=== PATIENT | female | born 1995 | race Two or more races ===

== ENCOUNTER 2019-02-03 09:27 | Emergency (ER) | payer OTHER ==
[2019-02-03 09:34] VITALS: BMI 17.2
--- NOTE | 2019-02-03 09:54 | PDOC ---
History of Present Illness - General Chief Complaint: Pain, Acute Stated Complaint: FEVER/ABD PAIN Time Seen by Provider: 02/03/19 09:52 History Source: Patient Exam Limitations: No Limitations - History of Present Illness Initial Comments: 02/03/19 10:35 Patient is a 23F with history of VSD s/p repair 3 years ago here today complaining of fever, nausea, and abdominal pain. The patient reports a subjective fever that started 4 days ago, with no temperature taken at home. Denies cough, chest pain, shortness of breath, headache, neck pain and sore throat. Patient states that she has had issues with abdominal pain and nausea for the past year. Patient had a CT scan 1 month ago at [facility] that was negative. Patient states the abdominal pain became worse about three days ago after taking doxycycline for her acne. Pain is worse when she doesn't eat. Reports issues with constipation, but had normal bowel movement this morning. Denies vaginal pain, vaginal discharge. Past History - Past Medical History Allergies/Adverse Reactions: Allergies Allergy/AdvReac Type Severity Reaction Status Date / Time No Known Allergies Allergy Verified 02/03/19 09:30 Home Medications: Ambulatory Orders NK [No Known Home Medication] 02/03/19 Cardiac Disorders: Yes (HEART MURMUR) COPD: No - Surgical History Cardiac Surgery: Yes - Immunization History Immunization Up to Date: Yes - Suicide/Smoking/Psychosocial Hx Smoking History: Never smoked Hx Alcohol Use: No Drug/Substance Use Hx: No Review of Systems - Review of Systems Able to Perform ROS?: Yes Comments:: 02/03/19 10:38 GENERAL/CONSTITUTIONAL: +fever +chills. No weakness. HEAD, EYES, EARS, NOSE AND THROAT: No change in vision. No ear pain or discharge. No sore throat. CARDIOVASCULAR: No chest pain or shortness of breath RESPIRATORY: No cough, wheezing, or hemoptysis. GASTROINTESTINAL: +nausea, no vomiting, diarrhea +constipation. GENITOURINARY: No dysuria, frequency, or change in urination. MUSCULOSKELETAL: No joint or muscle swelling or pain. No neck or back pain. SKIN: No rash NEUROLOGIC: No headache, vertigo, loss of consciousness, or change in strength/ sensation. ENDOCRINE: No increased thirst. No abnormal weight change HEMATOLOGIC/LYMPHATIC: No anemia, easy bleeding, or history of blood clots. ALLERGIC/IMMUNOLOGIC: No hives or skin allergy. *Physical Exam - Vital Signs Last Vital Signs Temp Pulse Resp BP Pulse Ox 98.7 F 75 18 108/57 L 100 02/03/19 09:32 02/03/19 09:32 02/03/19 09:32 02/03/19 09:32 02/03/19 09:32 - Physical Exam Comments: 02/03/19 10:39 GENERAL: Awake, alert, and fully oriented, in no acute distress HEAD: No signs of trauma, normocephalic, atraumatic EYES: PERRLA, EOMI, sclera anicteric, conjunctiva clear ENT: Auricles normal inspection, hearing grossly normal, nares patent, oropharynx clear without exudates. Moist mucosa NECK: Normal ROM, supple, no lymphadenopathy, JVD, or masses LUNGS: No distress, speaks full sentences, clear to auscultation bilaterally HEART: Regular rate and rhythm, normal S1 and S2, no murmurs, rubs or gallops, peripheral pulses normal and equal bilaterally. ABDOMEN: Soft, nontender, normoactive bowel sounds. No guarding, no rebound. No masses EXTREMITIES: Normal inspection, Normal range of motion, no edema. No clubbing or cyanosis. NEUROLOGICAL: Cranial nerves II through XII grossly intact. Normal speech, normal gait, no focal sensorimotor deficits SKIN: Warm, Dry, normal turgor, no rashes or lesions noted. Medical Decision Making - Medical Decision Making 02/03/19 10:39 Patient is 23F with history of VSD s/p repair here today with subjective fever and abdominal pain. Vitals normal and stable. No pain on exam. Considered typical causes of abdominal pain and fever, including, but not limited to: appendicitis, diverticulitis, colitis, pancreatitis, PID, etc but patient is nontender on exam and appears well. No signs of other infectious source like pneunomia or pharyngitis. LMP 2 weeks ago. Will evaluate with upreg. Will treat with zofran, tylenol and maalox. Suspect inflammation of stomach as primary cause, either due to medications or possible ulcer. Will refer to PCP (Dr Hanna ) and GI. 02/03/19 11:00 Preg negative. 02/03/19 11:13 Patient reports feeling better. Will discharge with follow up. Return precautions and discharge instructions given. *DC/Admit/Observation/Transfer Diagnosis at time of Disposition: Gastritis - Discharge Dispostion Disposition: HOME Condition at time of disposition: Good Decision to Admit order: No - Referrals Referrals: Yuri Hanna [Primary Care Provider] - - Patient Instructions Printed Discharge Instructions: DI for Gastritis Additional Instructions: Please follow up with your primary care physician this week. Please call the GI specialist below as well to setup an appointment. Please return if you have any new, worsening or concerning symptoms, especially repeated vomiting, increasing abdominal pain and inability to eat and drink. - Post Discharge Activity
--- NOTE | 2019-02-03 10:30 | PDOC ---
Attending Attestation - Resident Resident Name: Derrell Bryant - ED Attending Attestation I have performed the following: I have examined & evaluated the patient, The case was reviewed & discussed with the resident, I agree w/resident's findings & plan, Exceptions are as noted - HPI HPI: 02/03/19 10:29 23y F hx of VSD sp repair presents with 3 days of subjective fever. Pt with chronic abd pain, but worsened again about a moth ago, had recent [facility] abd at [facility] for similar comlaint that was normal - abd pain is aching in nature in the LLQ and is worse when she needs to hav a bM - notes the BMs typically is hard and pain resolves after she has a BM. Pt endorses some nausea and subjective ' feelnig warm inside' for 5-10 min before resolving. Denies vag bleeding/ discharge, dysuria/frequency, diarrhea, bpr, melena. Pt notes she recently travelled for a [place] to [place] where she drastically changed her diet, eating more carbs and less fruits/vegitables. she came back and went tback to her old diet, but also was recently started on doxycyline for her acne. GENERAL: The patient is awake, alert, and fully oriented, Nontoxic - in no acute distress. HEAD: Normocephalic, atraumatic. EYES: extraocular movements intact, sclera anicteric, conjunctiva clear. ENT: Normal voice, Moist mucous membranes. NECK: Normal range of motion, supple LUNGS: Breath sounds equal, clear to auscultation bilaterally. No wheezes, no rhonchi, no rales. HEART: Regular rate and rhythm, normal S1 and S2 without murmur, rub or gallop. ABDOMEN: Soft, nontender, No guarding, no rebound. No CVA tenderness, neg murphies, neg mcburnies EXTREMITIES: Normal range of motion, no edema. NEUROLOGICAL: No facial assymetry, Normal speech, PSYCH: Normal mood, normal affect. SKIN: Warm, Dry, normal turgor, suspect constipation no fever here (no recent useof anytypretics) abd soft nontender, no focal ttp to abd pt well appearing otherwise will ck ua to ro uti/ supportive care including increase hydration, excercise, fiber intake will have pt fu with GI for her chronic bd pain return precautions were discussed - Physicial Exam PE: 02/05/19 07:24 see above - Medical Decision Making 02/05/19 07:24 see above
[2019-02-03] MEDS ORDERED: MAG HYDROX/AL HYDROX/SIMETH 30 ML UNIT-DOSE CUP PO ONE (10:31)
[2019-02-03] MEDS ORDERED: ONDANSETRON *ODT* 4 MG TABLET SL ONE (10:31)
[2019-02-03] MEDS ORDERED: ACETAMINOPHEN 325 MG TABLET (FP) PO ONE (10:32)
[2019-02-03] MEDS ORDERED: ACETAMINOPHEN 325 MG TABLET (FP) ONE (10:37)
[2019-02-03] MEDS ORDERED: ONDANSETRON *ODT* 4 MG TABLET ONE (10:37)
[2019-02-03] MEDS ORDERED: MAG HYDROX/AL HYDROX/SIMETH 30 ML UNIT-DOSE CUP ONE (10:38)
[2019-02-03 11:35] VITALS: BP 96/68; PULSE 61; TEMP 98.9
== END 2019-02-03 11:35 | disposition home or self-care (01) ==
LOC: JER 09:27
DX: K29.60 Other gastritis without bleeding (principal)
CPT/HCPCS: 84703; 99282-25; Q0162